=== PATIENT | female | born 1945 | race African-American/Black ===

== ENCOUNTER 2016-09-30 10:44 | Inpatient (IN) | payer OTHER ==
[~2016-09-30] VITALS: Ht 162.6 cm; Wt 65.3 kg
[2016-09-30] MEDS ORDERED: FURO-152 PO (11:01)
[2016-09-30] MEDS ORDERED: POTA10CA42 PO (11:01)
[2016-09-30] MEDS ORDERED: CARV25TA47 PO (11:01)
[2016-09-30] MEDS ORDERED: METF500T4 PO ×2 (11:01→22:44)
[2016-09-30] MEDS ORDERED: NITROGLYCERIN OINT 1GM/INCH UDPKT TD ONE (11:30)
[2016-09-30] MEDS ORDERED: ASPIRIN 81MG TABLET PO ONE (11:30)
[2016-09-30] MEDS ORDERED: FUROSEMIDE 40MG/4ML VIAL IV ONE (11:30)
[2016-09-30 11:59] LABS: EOSINOPHILS % 0.6 % (0.0-5.0); HEMATOCRIT. 35.7 % (36.0-48.0); HEMOGLOBIN. 11.4 g/dL (12.0-16.0); LYMPHOCYTES % 22.1 % (20.0-50.0); MEAN CORPUSCULAR HEMOGLOBIN 26.3 pg (28.0-32.0); MEAN CORPUSCULAR HGB CONC 32.1 g/dL (31.0-37.0); MEAN PLATELET VOLUME 10.2 fl (7.4-10.4); MONOCYTES % 9.5 % (2.0-8.0); NEUTROPHILS % 66.8 % (40.0-76.0); PLATELET 152 x1000/uL (130-400); RED BLOOD CELL COUNT 4.35 mill/uL (4.2-5.4); WHITE BLOOD COUNT 6.1 x1000/uL (4.5-11.0)
[2016-09-30 12:09] LABS: D-DIMER 0.79 mg/L FEU (<0.50); INR 1.3; PROTHROMBIN TIME 13.2 sec
[2016-09-30 12:16] LABS: ALANINE AMINOTRANSFERASE 76 IU/L (13-61); ALBUMIN 2.6 g/dL (3.4-5.0); ANION GAP 11; CALCIUM 8.5 mg/dL (8.5-10.1); CARBON DIOXIDE 34 mEq/L (21-32); CHLORIDE 102 mEq/L (98-107); INDEX HEMOLYSI 1 (1-3); INDEX ICTERIC 2 (1-4); INDEX LIPEMIC 1 (1-3); NT PRO B-TYPE NATRIURETIC PEP 34320 pg/mL (5-125); TROPONIN I 0.11 ng/mL (0.00-0.04); UREA NITROGEN BLOOD 42 mg/dL (7-21); eGFR 41 mL/min (>60)
[2016-09-30] MEDS ORDERED: LORAZEPAM 2MG/ML CPJ IV PRN (17:30)
[2016-09-30] MEDS ORDERED: DOCUSATE SODIUM 100MG CAPSULE PO PRN (17:30)
[2016-09-30] MEDS ORDERED: ACETAMINOPHEN 325MG TABLET PO PRN (17:30)
[2016-09-30] MEDS ORDERED: TRAMADOL 50MG TABLET PO PRN (17:30)
[2016-09-30] MEDS ORDERED: DIPHENHYDRAMINE 50MG/ML VIAL IV PRN (17:30)
[2016-09-30] MEDS ORDERED: NITROGLYCERIN 0.4MG TABLET SL SL PRN (17:30)
[2016-09-30] MEDS ORDERED: CLONIDINE 0.1MG TABLET PO PRN (17:30)
[2016-09-30] MEDS ORDERED: MAGNESIUM/ALUMINUM HYDROXIDE/SIMETHICONE 30ML UDC PO PRN (17:30)
[2016-09-30] MEDS ORDERED: KETOROLAC 15MG/ML VIAL IV PRN (17:30)
[2016-09-30] MEDS ORDERED: IPRATROPIUM/ALBUTEROL 0.5-3(2.5)MG/3ML NEB INH PRN (17:30)
[2016-09-30] MEDS ORDERED: KCL 20MEQ/100ML PREMIX 100 ML IV NR (17:30)
[2016-09-30] MEDS ORDERED: GUAIFENESIN 200MG/10ML SUGAR FREE UDC PO PRN (17:30)
[2016-09-30] MEDS ORDERED: ONDANSETRON HCL 4MG/2ML VIAL IV PRN (17:30)
[2016-09-30 17:46] LABS: ETHANOL BLOOD < 10 mg/dL; HDL CHOLESTEROL 34 mg/dL (40-59); INDEX HEMOLYSI 2 (1-3); INDEX ICTERIC 2 (1-4); INDEX LIPEMIC 1 (1-3); LDL CHOLESTEROL 111 mg/dL (5-100); TRIGLYCERIDE 89 mg/dL (0-150)
[2016-09-30] MEDS ORDERED: DEXTROSE 50% WATER 50ML SYRINGE IV PRN (18:30)
[2016-09-30] MEDS: POTASSIUM CHLORIDE 20MEQ TABLET SR PO SCH (19:04)
[2016-09-30] MEDS ORDERED: ZOLPIDEM TARTRATE 5MG TABLET PO PRN (20:00)
[2016-09-30] MEDS ORDERED: NA PHOS,M-B/NA PHOS,DI-BA ENEMA 118ML PR PRN (20:00)
[2016-09-30 21:00] VITALS: BP 117/90
[2016-09-30] MEDS: INSULIN LISPRO 100 UNITS/ML SUBCUT SCH (21:00)
[2016-09-30] MEDS: FUROSEMIDE 40MG/4ML VIAL IVP SCH (21:27)
[2016-09-30] MEDS: LISINOPRIL 20MG TABLET PO SCH (21:27)
[2016-09-30] MEDS: SPIRONOLACTONE 25MG TABLET PO SCH (21:27)
[2016-09-30] MEDS: BLOOD SUGAR DIAGNOSTIC STRIP TEST SCH (21:28)
[2016-09-30] MEDS ORDERED: COR25 PO (22:44)
[2016-09-30] MEDS ORDERED: POTA10TA15 PO (22:44)
[2016-09-30 22:58] LABS: *AMPHETAMINES SCREEN URINE NEGATIVE (NEGATIVE); *BARBITURATES SCREEN URINE NEGATIVE (NEGATIVE); *BENZODIAZEPINES SCREEN URINE NEGATIVE (NEGATIVE); *COCAINE SCREEN URINE NEGATIVE (NEGATIVE); CANNABINOID URINE SCREEN NEGATIVE (NEGATIVE); ECSTASY MDMA SCREEN URINE NEGATIVE (NEGATIVE); METHADONE URINE SCREEN NEGATIVE (NEGATIVE); OPIATES URINE SCREEN NEGATIVE (NEGATIVE); PHENCYCLIDINE URINE SCREEN NEGATIVE (NEGATIVE)
[2016-09-30 23:03] LABS: CREATINE KINASE MB FRACTION 1.9 ng/mL (0.5-3.6); TROPONIN I 0.13 ng/mL (0.00-0.04)
[2016-10-01] VITALS: BP 111/76
[2016-10-01 04:00] VITALS: BP 130/95
[2016-10-01] MEDS: INSULIN LISPRO 100 UNITS/ML SUBCUT SCH ×4 (06:07→21:00)
[2016-10-01] MEDS: BLOOD SUGAR DIAGNOSTIC STRIP TEST SCH ×4 (06:07→21:45)
[2016-10-01 06:19] LABS: CREATINE KINASE MB FRACTION 1.8 ng/mL (0.5-3.6); TROPONIN I 0.12 ng/mL (0.00-0.04)
[2016-10-01 08:00] VITALS: BP 131/92
[2016-10-01] MEDS: ENOXAPARIN 40MG/0.4ML SYR SUBCUT SCH (09:00)
[2016-10-01] MEDS: FUROSEMIDE 40MG/4ML VIAL IVP SCH ×2 (09:09→21:36)
[2016-10-01] MEDS: PANTOPRAZOLE SODIUM 40 MG/VIAL IV SCH (09:10)
[2016-10-01] MEDS: POTASSIUM CHLORIDE 20MEQ TABLET SR PO SCH (09:10)
[2016-10-01] MEDS: SPIRONOLACTONE 25MG TABLET PO SCH ×2 (09:10→21:36)
[2016-10-01] MEDS: ASPIRIN 325MG EC TABLET PO SCH (09:10)
[2016-10-01] MEDS: LISINOPRIL 20MG TABLET PO SCH ×2 (09:11→21:36)
[2016-10-01 12:00] VITALS: BP 117/90
[2016-10-01 12:21] LABS: BASOPHILS % 0.8 % (0.0-2.0); HEMOGLOBIN. 11.8 g/dL (12.0-16.0); LYMPHOCYTES % 20.7 % (20.0-50.0); MEAN CORPUSCULAR HEMOGLOBIN 26.4 pg (28.0-32.0); MEAN CORPUSCULAR HGB CONC 31.9 g/dL (31.0-37.0); MEAN CORPUSCULAR VOLUME 82.7 fL (81.0-99.0); MEAN PLATELET VOLUME 11.2 fl (7.4-10.4); MONOCYTES % 11.5 % (2.0-8.0); PLATELET 150 x1000/uL (130-400); RED BLOOD CELL COUNT 4.47 mill/uL (4.2-5.4); WHITE BLOOD COUNT 6.4 x1000/uL (4.5-11.0)
[2016-10-01 12:24] LABS: ALANINE AMINOTRANSFERASE 76 IU/L (13-61); ALBUMIN 2.8 g/dL (3.4-5.0); ANION GAP 9; CALCIUM 8.7 mg/dL (8.5-10.1); CARBON DIOXIDE 38 mEq/L (21-32); CHLORIDE 100 mEq/L (98-107); INDEX HEMOLYSI 1 (1-3); INDEX ICTERIC 1 (1-4); INDEX LIPEMIC 1 (1-3); UREA NITROGEN BLOOD 32 mg/dL (7-21); eGFR 49 mL/min (>60)
[2016-10-01 16:00] VITALS: BP 126/88
[2016-10-01 20:00] VITALS: BP 127/90
[2016-10-02] VITALS: BP 120/95
[2016-10-02 04:00] VITALS: BP 116/98
[2016-10-02] MEDS: INSULIN LISPRO 100 UNITS/ML SUBCUT SCH ×3 (06:25→21:00)
[2016-10-02] MEDS: BLOOD SUGAR DIAGNOSTIC STRIP TEST SCH ×3 (06:25→21:00)
[2016-10-02 08:00] VITALS: BP 132/99
[2016-10-02] MEDS: ENOXAPARIN 40MG/0.4ML SYR SUBCUT SCH (08:36)
[2016-10-02] MEDS: ASPIRIN 325MG EC TABLET PO SCH (08:37)
[2016-10-02] MEDS: SPIRONOLACTONE 25MG TABLET PO SCH ×2 (08:37→22:36)
[2016-10-02] MEDS: LISINOPRIL 20MG TABLET PO SCH ×2 (08:37→22:36)
[2016-10-02] MEDS: POTASSIUM CHLORIDE 20MEQ TABLET SR PO SCH (08:37)
[2016-10-02] MEDS: PANTOPRAZOLE SODIUM 40 MG/VIAL IV SCH (08:38)
[2016-10-02] MEDS: FUROSEMIDE 40MG/4ML VIAL IVP SCH ×2 (09:00→22:36)
[2016-10-02 12:00] VITALS: BP 122/90
[2016-10-02 16:00] VITALS: BP 123/97
[2016-10-02 20:00] VITALS: BP 122/92
[2016-10-03] VITALS: BP 129/96
[2016-10-03 04:00] VITALS: BP 113/88
[2016-10-03] MEDS: BLOOD SUGAR DIAGNOSTIC STRIP TEST SCH ×2 (07:40→12:40)
[2016-10-03] MEDS: INSULIN LISPRO 100 UNITS/ML SUBCUT SCH ×2 (08:10→13:10)
[2016-10-03] MEDS: PANTOPRAZOLE SODIUM 40 MG/VIAL IV SCH (08:59)
[2016-10-03] MEDS: SPIRONOLACTONE 25MG TABLET PO SCH (08:59)
[2016-10-03] MEDS: FUROSEMIDE 40MG/4ML VIAL IVP SCH (08:59)
[2016-10-03] MEDS: POTASSIUM CHLORIDE 20MEQ TABLET SR PO SCH (09:00)
[2016-10-03] MEDS: ENOXAPARIN 40MG/0.4ML SYR SUBCUT SCH (09:00)
[2016-10-03] MEDS: ASPIRIN 325MG EC TABLET PO SCH (09:00)
[2016-10-03] MEDS: LISINOPRIL 20MG TABLET PO SCH (09:00)
[2016-10-03 12:00] VITALS: BP 114/91
[2016-10-03 12:23] VITALS: BP 137/79
== END 2016-10-03 13:26 | disposition home or self-care (01) | DRG 291 ==
LOC: ER 12:26 → SUPCPDRO 16:10 → 7WST 16:16
PROVIDERS: ADMIT Internal Medicine; ATTEND Internal Medicine
DX: I11.0 Hypertensive heart disease with heart failure (principal); E43 Unspecified severe protein-calorie malnutrition; I50.43 Acute on chronic combined systolic (congestive) and diastolic (congestive) heart failure; I42.9 Cardiomyopathy, unspecified; E87.6 Hypokalemia; E11.9 Type 2 diabetes mellitus without complications; E78.00 Pure hypercholesterolemia, unspecified; F17.210 Nicotine dependence, cigarettes, uncomplicated; I27.2 Other secondary pulmonary hypertension; J44.9 Chronic obstructive pulmonary disease, unspecified; Z68.24 Body mass index [BMI] 24.0-24.9, adult; Z79.4 Long term (current) use of insulin; Z90.710 Acquired absence of both cervix and uterus
CPT/HCPCS: 36415; 71010; 80053; 80061; 80305; 82550; 82553; 82962; 83036; 83880; 84484; 85025; 85379; 85610; 93005; 93306; 93970; 96374; 99285; C9113; G0482; J1650; J1940; J3480; J7030